=== PATIENT | female | born 1990 | race African-American/Black ===

== ENCOUNTER 2017-01-12 08:47 | Emergency (ER) | payer BC, OTHER ==
[~2017-01-12] VITALS: Ht 170.2 cm; Wt 86.3 kg
[2017-01-12 08:54] VITALS: BP 136/78
[2017-01-12] MEDS ORDERED: ACETAMINOPHEN 325MG TABLET PO ONE (09:45)
[2017-01-12] MEDS ORDERED: LIDOCAINE HCL 1% 20ML VIAL (Pyxis) INJ MC ONE (09:45)
[2017-01-12] MEDS ORDERED: BACITRACIN ZINC OINT UDPKT TOP ONE (09:45)
[2017-01-12] MEDS ORDERED: TETANUS, DIPHTHERIA, PERTUSSIS VAC/PF 0.5ML (>7YR OLD) IM ONE (09:45)
== END 2017-01-12 12:22 | disposition home or self-care (01) ==
LOC: ER 08:48
DX: S61.412A Laceration without foreign body of left hand, initial encounter (principal); Z87.891 Personal history of nicotine dependence; W26.0XXA Contact with knife, initial encounter; Y93.89 Activity, other specified; Y99.8 Other external cause status; Y92.89 Other specified places as the place of occurrence of the external cause
CPT/HCPCS: 12001; 90471; 90715; 99283; J3490; X7700; Z7610

== ENCOUNTER 2017-01-26 08:14 | Emergency (ER) | payer OTHER ==
[~2017-01-26] VITALS: Ht 170.2 cm; Wt 87.0 kg
[2017-01-26 09:57] VITALS: BP 119/66
== END 2017-01-26 09:58 | disposition home or self-care (01) ==
LOC: ER 08:37
DX: Z48.02 Encounter for removal of sutures (principal)
CPT/HCPCS: 99282; Z7610

== ENCOUNTER 2017-09-19 17:36 | Emergency (ER) | payer OTHER ==
[~2017-09-19] VITALS: Ht 170.2 cm; Wt 100.0 kg
[2017-09-19 18:11] VITALS: BP 145/77
== END 2017-09-19 22:54 | disposition home or self-care (01) ==
LOC: ER 18:24
DX: N61.1 Abscess of the breast and nipple (principal)
CPT/HCPCS: 99283

== ENCOUNTER 2020-02-01 15:43 | Emergency (ER) | payer BC, OTHER ==
[~2020-02-01] VITALS: Ht 170.2 cm; Wt 108.0 kg
[2020-02-01 17:27] LABS: CLARITY URINE CLEAR (CLEAR); COLOR URINE YELLOW (YELLOW); KETONES URINE TRACE (NEGATIVE); LEUKOCYTE ESTERASE URINE NEGATIVE (NEGATIVE); NITRITE URINE NEGATIVE (NEGATIVE); OCCULT BLOOD URINE NEGATIVE (NEGATIVE); PROTEIN URINE NEGATIVE (NEGATIVE); SPECIFIC GRAVITY URINE 1.022 (1.005-1.030); UROBILINOGEN URINE 0.2 E.U./dL (0.2-1.0)
[2020-02-01 18:30] VITALS: BP 158/89
[2020-02-01] MEDS ORDERED: MAGNESIUM/ALUMINUM HYDROXIDE/SIMETHICONE 30ML UDC PO ONE (19:00)
[2020-02-01] MEDS ORDERED: IBUPROFEN 600MG TABLET PO ONE (19:00)
[2020-02-01] MEDS ORDERED: VISCOUS LIDOCAINE 2% 15 ML UDC PO ONE (19:00)
== END 2020-02-01 22:04 | disposition home or self-care (01) ==
LOC: ER 15:43
DX: K59.00 Constipation, unspecified (principal); N64.4 Mastodynia
CPT/HCPCS: 74021; 81003; 81025; 93005; 99285